=== PATIENT | male | born 1970 | race Caucasian/White ===

== ENCOUNTER 2024-09-16 11:26 | Emergency (ER) | payer BC ==
[~2024-09-16] VITALS: Ht 170.2 cm; Wt 82.0 kg
[2024-09-16 11:56] LABS: BASOPHILS # (AUTO) 0.1 X10'3 (0-0.2); BASOPHILS % (AUTO) 1.2 % (0-1); EOSINOPHILS % (AUTO) 0.5 % (0-6); HEMATOCRIT 31.8 % (42.0-52.0); HEMOGLOBIN 10.7 g/dl (14.0-17.9); LYMPHOCYTES # (AUTO) 1.2 X10'3 (1.1-4.8); LYMPHOCYTES % (AUTO) 23.3 % (21-51); MEAN CORPUSCULAR HEMOGLOBIN 33.3 PG (27.0-31.0); MEAN CORPUSCULAR HGB CONC 33.8 g/dL (33.0-36.5); MEAN CORPUSCULAR VOLUME 98.6 FL (78-98); MEAN PLATELET VOLUME 9.3 FL (7.4-10.4); MONOCYTES # (AUTO) 0.1 X10'3 (0-0.9); MONOCYTES % (AUTO) 2.9 % (2-12); NEUTROPHILS # (AUTO) 3.8 X10'3 (1.8-7.7); NEUTROPHILS % (AUTO) 72.1 % (42-75); PLATELET COUNT 178 X10'3 (140-440); RED BLOOD COUNT 3.23 X10'6 (4.70-6.10); RED CELL DISTRIBUTION WIDTH 13.5 % (11.5-14.5); WHITE BLOOD COUNT 5.2 X10'3 (4.5-11.0)
[2024-09-16] MEDS ORDERED: proparacaine 0.5% ophthalmic drops 15ml LEFTEYE ONE (12:00)
[2024-09-16 12:15] LABS: ALANINE AMINOTRANSFERASE 537 U/L (12-78); ALBUMIN 3.5 G/DL (3.4-5.0); ALBUMIN/GLOBULIN RATIO 1.1 (1.1-1.5); ALKALINE PHOSPHATASE 208 IU/L (46-116); ANION GAP 19 (8-16); BILIRUBIN,TOTAL 0.7 MG/DL (0.1-1.0); BLOOD UREA NITROGEN 33 MG/DL (7-18); BUN/CREATININE RATIO 14.3 (10.0-20.0); CALCIUM 8.4 MG/DL (8.5-10.1); CHLORIDE 103 MMOL/L (99-107); CREATININE 2.31 MG/DL (0.60-1.10); GLUCOSE 169 MG/DL (70-104); POTASSIUM 3.9 MMOL/L (3.5-5.1); SODIUM 138 MMOL/L (135-145); TOTAL PROTEIN 6.6 G/DL (6.4-8.2); eCRCL 34 ML/MIN; eGFR 30 ML/MIN
[2024-09-16 12:30] LABS: PRO BRAIN NATRIURETIC PEPTIDE 44 PG/ML (0-125)
[2024-09-16] MEDS: normal saline 1000ml 1,000 ML IV ONE ×2 (12:36→15:52)
[2024-09-16] MEDS: thiamine 100mg/ml 2ml inj. IM ONE (12:37)
[2024-09-16 12:39] LABS: ASPARTATE AMINO TRANSFERASE 2870 U/L (10-37)
[2024-09-16 12:53] LABS: ETHANOL 225 MG/DL (<10)
[2024-09-16] MEDS ORDERED: normal saline 1000ml 1,000 ML IV SCH (15:25)
[2024-09-16 18:52] VITALS: TEMP 97.5
[2024-09-16] MEDS: ondansetron/PF 4mg/2ml inj IV ONE (18:52)
[2024-09-16 19:12] VITALS: BP 110/60; PULSE 85; RESP 16; O2SAT 99
== END 2024-09-16 19:26 | disposition home or self-care (01) ==
LOC: ER 11:26
DX: E86.0 Dehydration (principal); I95.9 Hypotension, unspecified; R53.1 Weakness; R42 Dizziness and giddiness
CPT/HCPCS: 36415; 71045; 80053; 80320; 82948; 83880; 84484; 85025; 93005; 96361; 96372; 96374; 99285; J2405; J3411; J7030

== ENCOUNTER 2024-10-02 10:41 | Emergency (ER) | payer BC ==
[~2024-10-02] VITALS: Ht 172.7 cm; Wt 74.3 kg
[2024-10-02 10:43] VITALS: BP 135/82; PULSE 119; RESP 16; O2SAT 98
[2024-10-02 11:51] LABS: ALBUMIN 3.6 G/DL (3.4-5.0); ANION GAP 16 (8-16); BLOOD UREA NITROGEN 8 MG/DL (7-18); BUN/CREATININE RATIO 4.5 (10.0-20.0); CALCIUM 8.9 MG/DL (8.5-10.1); CHLORIDE 104 MMOL/L (99-107); CREATININE 1.79 MG/DL (0.60-1.10); GLUCOSE 209 MG/DL (70-104); POTASSIUM 3.7 MMOL/L (3.5-5.1); SODIUM 138 MMOL/L (135-145); TOTAL CARBON DIOXIDE 18.4 MMOL/L (24-32); eCRCL 45 ML/MIN; eGFR 40 ML/MIN
[2024-10-02 11:55] LABS: BASOPHILS # (AUTO) 0.1 X10'3 (0-0.2); LYMPHOCYTES # (AUTO) 1.4 X10'3 (1.1-4.8); MEAN CORPUSCULAR VOLUME 100.7 FL (78-98); MONOCYTES # (AUTO) 0.4 X10'3 (0-0.9); WHITE BLOOD COUNT 3.4 X10'3 (4.5-11.0)
[2024-10-02 11:57] LABS: BASOPHILS % (AUTO) 2.3 % (0-1); EOSINOPHILS # (AUTO) 0.1 X10'3 (0-0.9); EOSINOPHILS % (AUTO) 1.5 % (0-6); HEMATOCRIT 34.3 % (42.0-52.0); HEMOGLOBIN 11.7 g/dl (14.0-17.9); MEAN CORPUSCULAR HEMOGLOBIN 34.5 PG (27.0-31.0); MEAN CORPUSCULAR HGB CONC 34.2 g/dL (33.0-36.5); MONOCYTES % (AUTO) 12.1 % (2-12); NEUTROPHILS # (AUTO) 1.4 X10'3 (1.8-7.7); NEUTROPHILS % (AUTO) 43.1 % (42-75); PLATELET COUNT 214 X10'3 (140-440); RED BLOOD COUNT 3.41 X10'6 (4.70-6.10); RED CELL DISTRIBUTION WIDTH 14.8 % (11.5-14.5)
[2024-10-02 12:09] VITALS: TEMP 98.5
[2024-10-02] MEDS ORDERED: GABA300C PO (15:16)
== END 2024-10-02 12:11 | disposition home or self-care (01) ==
LOC: ER 10:42
DX: F41.9 Anxiety disorder, unspecified (principal); F10.10 Alcohol abuse, uncomplicated; F13.20 Sedative, hypnotic or anxiolytic dependence, uncomplicated; I10 Essential (primary) hypertension; E11.9 Type 2 diabetes mellitus without complications; Z79.899 Other long term (current) drug therapy
CPT/HCPCS: 80048; 85025; 99283

== ENCOUNTER 2024-11-24 10:26 | Inpatient (IN) | payer BC, MEDICAID ==
[~2024-11-24] VITALS: Ht 172.7 cm; Wt 82.0 kg
[~2024-11-24 10:26] MED LIST: GABA300C PO
[2024-11-24 12:06] LABS: BILIRUBIN,URINE NEGATIVE (Neg); CLARITY,URINE CLEAR (Clear); COLOR,URINE YELLOW (Yellow); GLUCOSE, URINE NEGATIVE (Neg); KETONES,URINE NEGATIVE (Neg); LEUKOCYTE ESTERASE ,URINE NEGATIVE (Neg); NITRITES, URINE NEGATIVE (Neg); OCCULT BLOOD,URINE NEGATIVE (Neg); PH,URINE 6.5 (4.8-8.0); PROTEIN,URINE TRACE mg/dl (Neg); UROBILINOGEN,URINE 0.2 E.U/dL (0.2-1.0)
[2024-11-24 12:08] LABS: UA COLLECTION TYPE VOIDED
[2024-11-24 12:12] LABS: BACTERIA,URINE NONE SEEN /HPF (Neg); MUCUS STRANDS NONE SEEN /LPF (Neg); RBC,URINE 0-2 /HPF (0-2); SQUAMOUS EPITHELIAL CELL,UR NONE SEEN /LPF (FEW); WBC,URINE 0-4 /HPF (0-4)
[2024-11-24 12:18] LABS: URINE AMPHETAMINE SCREEN NEGATIVE (Neg); URINE BARBITUATE SCREEN NEGATIVE (Neg); URINE BENZODIAZEPINES SCREEN POSITIVE (Neg); URINE CANNABINOID SCREEN NEGATIVE (Neg); URINE COCAINE SCREEN NEGATIVE (Neg); URINE METHADONE SCREEN NEGATIVE (Neg); URINE OPIATE SCREEN NEGATIVE (Neg); URINE PHENCYCLIDINE SCREEN NEGATIVE (Neg)
[2024-11-24 12:20] LABS: BASOPHILS # (AUTO) 0.1 X10'3 (0-0.2); BASOPHILS % (AUTO) 1.5 % (0-1); EOSINOPHILS # (AUTO) 0.1 X10'3 (0-0.9); EOSINOPHILS % (AUTO) 2.3 % (0-6); HEMATOCRIT 36.1 % (42.0-52.0); HEMOGLOBIN 12.3 g/dl (14.0-17.9); LYMPHOCYTES # (AUTO) 1.6 X10'3 (1.1-4.8); LYMPHOCYTES % (AUTO) 35.9 % (21-51); MEAN CORPUSCULAR HEMOGLOBIN 34.4 PG (27.0-31.0); MEAN CORPUSCULAR HGB CONC 34.2 g/dL (33.0-36.5); MEAN CORPUSCULAR VOLUME 100.4 FL (78-98); MEAN PLATELET VOLUME 9.8 FL (7.4-10.4); MONOCYTES # (AUTO) 0.3 X10'3 (0-0.9); MONOCYTES % (AUTO) 7.2 % (2-12); NEUTROPHILS # (AUTO) 2.3 X10'3 (1.8-7.7); NEUTROPHILS % (AUTO) 53.1 % (42-75); PLATELET COUNT 166 X10'3 (140-440); RED BLOOD COUNT 3.59 X10'6 (4.70-6.10); RED CELL DISTRIBUTION WIDTH 14.6 % (11.5-14.5); WHITE BLOOD COUNT 4.4 X10'3 (4.5-11.0)
[2024-11-24] MEDS: ondansetron/PF 4mg/2ml inj IV ONE (12:29)
[2024-11-24 12:45] LABS: ALBUMIN 3.8 G/DL (3.4-5.0); ANION GAP 16 (8-16); BLOOD UREA NITROGEN 20 MG/DL (7-18); BUN/CREATININE RATIO 11.6 (10.0-20.0); CALCIUM 8.8 MG/DL (8.5-10.1); CHLORIDE 102 MMOL/L (99-107); CREATININE 1.72 MG/DL (0.60-1.10); ETHANOL 127 MG/DL (<10); GLUCOSE 170 MG/DL (70-104); MAGNESIUM 1.6 MG/DL (1.5-2.4); POTASSIUM 3.4 MMOL/L (3.5-5.1); SODIUM 133 MMOL/L (135-145); eCRCL 46 ML/MIN; eGFR 41 ML/MIN
[2024-11-24 12:50] LABS: TOTAL CARBON DIOXIDE 14.9 MMOL/L (24-32)
[2024-11-24 13:10] LABS: ALANINE AMINOTRANSFERASE 290 U/L (12-78); ALBUMIN/GLOBULIN RATIO 1.1 (1.1-1.5); ALKALINE PHOSPHATASE 169 IU/L (46-116); ASPARTATE AMINO TRANSFERASE 522 U/L (10-37); BILIRUBIN,DIRECT 0.2 MG/DL (0-0.3); BILIRUBIN,TOTAL 0.6 MG/DL (0.1-1.0); TOTAL PROTEIN 7.2 G/DL (6.4-8.2)
[2024-11-24] MEDS: LORazepam 2 mg/ml vial IV ONE (13:17)
[2024-11-24] MEDS: normal saline 1000ml 1,000 ML IV ONE (13:17)
[2024-11-24] MEDS: normal saline 1000ML IV soln IVB ONE (13:17)
[2024-11-24 13:33] LABS: LIPASE 28 U/L (16-77)
[2024-11-24] MEDS: potassium CL 10mEq/100ml bag 100 ML IV ONE (13:53)
[2024-11-24] MEDS ORDERED: pantoprazole 40mg IV 80 MG in normal saline 100ml IV soln 100 ML IV ONE (14:25)
[2024-11-24] MEDS ORDERED: potassium Cl 40MEQ/1/2NS 520ml 520 ML IV PRN (14:35)
[2024-11-24] MEDS ORDERED: acetaminophen 325mg tablet PO PRN (14:35)
[2024-11-24] MEDS ORDERED: magnesium Cl slow-release 64mg tablet PO PRN (14:35)
[2024-11-24] MEDS ORDERED: metoclopramide 5 mg/ml inj IV PRN (14:35)
[2024-11-24] MEDS: pantoprazole 40 MG vial IV ONE (14:43)
[2024-11-24] MEDS: magnesium sulf-water 2g/50mL 50 ML IV ONE (14:44)
[2024-11-24] MEDS ORDERED: haloperidol lactate 5mg/ml inj IM PRN (15:25)
[2024-11-24] MEDS ORDERED: cloNIDine 0.1 mg tablet PO PRN (15:25)
[2024-11-24] MEDS ORDERED: DEXTROSE 15 GM of carb/4 tabs (each vial/BOTTLE has 4 tablets) PO PRN ×2 (15:30)
[2024-11-24] MEDS ORDERED: glucagon, human recombinant 1mg kit SUBCUT PRN (15:30)
[2024-11-24 15:36] LABS: OCCULT BLOOD STOOL POSITIVE (Neg)
[2024-11-24] MEDS: thiamine 100mg/ml 2ml inj. IV ONE (15:45)
[2024-11-24] MEDS: normal saline 1000ml 1,000 ML IV SCH (15:45)
[2024-11-24] MEDS ORDERED: PROP20TA6 PO (16:28)
[2024-11-24] MEDS ORDERED: EZET10TA48 PO (16:28)
[2024-11-24] MEDS ORDERED: ALPR1TAB7 PO (16:28)
[2024-11-24] MEDS ORDERED: GEMF600T89 PO (16:28)
[2024-11-24] MEDS ORDERED: ATOR-2 PO (16:28)
[2024-11-24 17:23] LABS: CHOL/HDL RATIO 2.5 (0.00-4.99); CHOLESTEROL 146 MG/DL (0-200); HDL CHOLESTEROL 58 MG/DL (35-60); LDL CHOLESTEROL 32 MG/DL (50-100); TRIGLYCERIDES 507 MG/DL (20-135)
[2024-11-24] MEDS: INSULIN LISPRO 100 UNIT/ML INSULN.PEN MULTI-DOSE SQ SCH (17:25)
[2024-11-24 17:30] LABS: HEMOGLOBIN A1C 7.2 % (4.5-6.2)
[2024-11-24] MEDS: K and/or MAG REPLACEMENT MC SCH (19:25)
[2024-11-24] MEDS: LORazepam 2 mg/ml vial IV PRN (19:44)
[2024-11-24] MEDS: pantoprazole 40 MG vial IV SCH (19:51)
[2024-11-24 21:00] VITALS: BP 126/66; RESP 20; RESP 22; TEMP 97.6; O2SAT 99
[2024-11-24] MEDS: insulin glargine (Lantus) pen - multi-dose SQ SCH (21:00)
[2024-11-24 22:00] VITALS: BP 122/66; PULSE 119; RESP 18; TEMP 98.4; O2SAT 100
[2024-11-25] VITALS (15 sets, daily range): BP systolic 90–133; BP diastolic 40–66; PULSE 108–140; RESP 16–32; TEMP 97–99.8; O2SAT 98–100
[2024-11-25 05:25] LABS: BASOPHILS # (AUTO) 0.1 X10'3 (0-0.2); BASOPHILS % (AUTO) 0.8 % (0-1); EOSINOPHILS % (AUTO) 0.2 % (0-6); HEMATOCRIT 30.8 % (42.0-52.0); HEMOGLOBIN 10.2 g/dl (14.0-17.9); LYMPHOCYTES # (AUTO) 1.4 X10'3 (1.1-4.8); LYMPHOCYTES % (AUTO) 18.2 % (21-51); MEAN CORPUSCULAR HEMOGLOBIN 34.3 PG (27.0-31.0); MEAN CORPUSCULAR HGB CONC 33.2 g/dL (33.0-36.5); MEAN CORPUSCULAR VOLUME 103.4 FL (78-98); MEAN PLATELET VOLUME 10.1 FL (7.4-10.4); MONOCYTES # (AUTO) 0.4 X10'3 (0-0.9); MONOCYTES % (AUTO) 5.8 % (2-12); NEUTROPHILS # (AUTO) 5.7 X10'3 (1.8-7.7); PLATELET COUNT 132 X10'3 (140-440); RED BLOOD COUNT 2.98 X10'6 (4.70-6.10); RED CELL DISTRIBUTION WIDTH 14.5 % (11.5-14.5); WHITE BLOOD COUNT 7.6 X10'3 (4.5-11.0)
[2024-11-25 05:49] LABS: ALANINE AMINOTRANSFERASE 203 U/L (12-78); ALBUMIN 3.3 G/DL (3.4-5.0); ALKALINE PHOSPHATASE 135 IU/L (46-116); ANION GAP 24 (8-16); ASPARTATE AMINO TRANSFERASE 276 U/L (10-37); BILIRUBIN,TOTAL 0.8 MG/DL (0.1-1.0); BLOOD UREA NITROGEN 18 MG/DL (7-18); BUN/CREATININE RATIO 10.3 (10.0-20.0); CALCIUM 7.7 MG/DL (8.5-10.1); CHLORIDE 102 MMOL/L (99-107); CREATININE 1.75 MG/DL (0.60-1.10); GLUCOSE 322 MG/DL (70-104); MAGNESIUM 1.6 MG/DL (1.5-2.4); PHOSPHORUS 2.8 MG/DL (2.3-4.5); POTASSIUM 4.2 MMOL/L (3.5-5.1); SODIUM 133 MMOL/L (135-145); TOTAL PROTEIN 6.6 G/DL (6.4-8.2); eCRCL 46 ML/MIN; eGFR 41 ML/MIN
[2024-11-25 06:19] LABS: TOTAL CARBON DIOXIDE 7.1 MMOL/L (24-32)
[2024-11-25] MEDS ORDERED: sodium bicarbonate (8.4%) inj. 100 MEQ in dextrose 5%-water 1,000 ML IV SCH (06:30)
[2024-11-25] MEDS ORDERED: dextrose 50%-water 50ml dispensing syringe IV PRN ×2 (07:35→22:25)
[2024-11-25] MEDS ORDERED: potassium Cl 40MEQ/270ML bag 270 ML IV PRN (07:35)
[2024-11-25] MEDS ORDERED: ringers solution, lacted 1,000 ML IV SCH (07:40)
[2024-11-25 07:44] LABS: ABG BASE EXCESS -20.2 mmol/L (-2.0-3.0); ABG HCO3 5.4 mmol/L (21.0-28.0); ABG OXYGEN SATURATION 98.2 % (94.0-98.0); ABG PCO2 (T) 13.7 mmHg (35.0-48.0); ABG PH (T) 7.213 (7.350-7.450); ABG PO2 (T) 111.9 mmHg (83.0-108.0); ALLEN'S TEST POSITIVE; FCOHb 0.3 % (0.5-1.5); FHHb 1.8 % (0.0-5.0); FMetHb 0.1 % (0.0-1.5); FO2Hb 97.8 % (94.0-98.0); MODE ROOM AIR; PATIENT TEMPERATURE 37.1; TOTAL HEMOGLOBIN 10.3 G/dl (13.5-17.5)
[2024-11-25] MEDS: ringers solution, lacted 1,000 ML IV ONE (08:00)
[2024-11-25] MEDS: ondansetron/PF 4mg/2ml inj IV PRN (08:03)
[2024-11-25] MEDS: multivitamins, therapeutics tablet PO SCH (08:54)
[2024-11-25] MEDS: thiamine 100mg tablet PO SCH (08:54)
[2024-11-25] MEDS: ringers solution, lacted 1,000 ML IV SCH (10:31)
[2024-11-25] MEDS: Insulin Reg/NS 100units/100mL 100 ML IV SCH (10:38)
[2024-11-25] MEDS: potassium Cl 40MEQ/1/2NS 520ml 520 ML IV PRN (10:39)
[2024-11-25] MEDS: WATER FOR INJ IV ONE (10:50)
[2024-11-25] MEDS: [UNRECOGNIZED DRUG - OTHER] IV ONE (10:50)
[2024-11-25] MEDS: SODIUM BICARBONATE IV ONE (10:50)
[2024-11-25] MEDS: POTASSIUM CL IV ONE (10:50)
[2024-11-25] MEDS: magnesium sulf-water 2g/50mL 50 ML IV PRN (11:05)
[2024-11-25 12:10] LABS: ALBUMIN 3.3 G/DL (3.4-5.0); ANION GAP 25 (8-16); BLOOD UREA NITROGEN 20 MG/DL (7-18); BUN/CREATININE RATIO 8.8 (10.0-20.0); CALCIUM 7.7 MG/DL (8.5-10.1); CHLORIDE 105 MMOL/L (99-107); CREATININE 2.28 MG/DL (0.60-1.10); GLUCOSE 271 MG/DL (70-104); POTASSIUM 3.9 MMOL/L (3.5-5.1); SODIUM 137 MMOL/L (135-145); eCRCL 35 ML/MIN; eGFR 30 ML/MIN
[2024-11-25 12:12] LABS: TOTAL CARBON DIOXIDE 7.2 MMOL/L (24-32)
[2024-11-25] MEDS ORDERED: ALBU90AE INH (12:39)
[2024-11-25] MEDS ORDERED: INSU100C4 SQ (12:39)
[2024-11-25] MEDS ORDERED: AMLO5TAB16 PO (12:39)
[2024-11-25] MEDS ORDERED: ALB0.5UD IH (12:39)
[2024-11-25] MEDS ORDERED: CHOL50004 PO (12:39)
[2024-11-25] MEDS: insulin regular, human U-100 10ml vial - multi-dose IV STA (12:57)
[2024-11-25] MEDS: dextrose 5%-1/2 normal saline 1,000 ML IV PRN (12:58)
[2024-11-25] MEDS: albuterol 2.5 MG/3 ML nebule ONE (13:54)
[2024-11-25] MEDS: acetaminophen 325mg tablet PO PRN (14:21)
[2024-11-25] MEDS ORDERED: albuterol 2.5 MG/3 ML nebule NEB SCH (16:00)
[2024-11-25] MEDS: albuterol 2.5 MG/3 ML nebule NEB SCH (16:00)
[2024-11-25 16:09] LABS: ANION GAP 17 (8-16); BLOOD UREA NITROGEN 18 MG/DL (7-18); BUN/CREATININE RATIO 7.7 (10.0-20.0); CHLORIDE 105 MMOL/L (99-107); CREATININE 2.34 MG/DL (0.60-1.10); GLUCOSE 98 MG/DL (70-104); POTASSIUM 3.5 MMOL/L (3.5-5.1); SODIUM 134 MMOL/L (135-145); eCRCL 34 ML/MIN; eGFR 29 ML/MIN
[2024-11-25 16:22] LABS: CALCIUM 7.9 MG/DL (8.5-10.1)
[2024-11-25 16:26] LABS: TOTAL CARBON DIOXIDE 11.8 MMOL/L (24-32)
[2024-11-25] MEDS: Dextrose 10%-water IV solution 1,000 ML IV SCH ×2 (19:27→21:45)
[2024-11-25] MEDS: sodium phosphate inj. 30 MMOL in dextrose 5%-water 250 ML IV ONE (19:35)
[2024-11-25] MEDS ORDERED: Dextrose 10%-water IV solution 1,000 ML IV SCH (20:15)
[2024-11-25 20:30] LABS: ALBUMIN 3.1 G/DL (3.4-5.0); ANION GAP 13 (8-16); BLOOD UREA NITROGEN 16 MG/DL (7-18); BUN/CREATININE RATIO 7.8 (10.0-20.0); CALCIUM 7.6 MG/DL (8.5-10.1); CHLORIDE 106 MMOL/L (99-107); CREATININE 2.05 MG/DL (0.60-1.10); GLUCOSE 67 MG/DL (70-104); MAGNESIUM 2.1 MG/DL (1.5-2.4); POTASSIUM 3.5 MMOL/L (3.5-5.1); SODIUM 134 MMOL/L (135-145); TOTAL CARBON DIOXIDE 15.1 MMOL/L (24-32); eCRCL 39 ML/MIN; eGFR 34 ML/MIN
[2024-11-25 20:41] LABS: PHOSPHORUS 0.9 MG/DL (2.3-4.5)
[2024-11-25] MEDS: pantoprazole 40mg Tablet.DR PO SCH (21:39)
[2024-11-25] MEDS: HYDROcodone/acetaminophen 5mg/325mg tablet PO PRN (21:40)
[2024-11-25] MEDS ORDERED: DEXTROSE 15 GM of carb/4 tabs (each vial/BOTTLE has 4 tablets) PO PRN ×2 (22:25)
[2024-11-25] MEDS ORDERED: glucagon, human recombinant 1mg kit SUBCUT PRN (22:25)
[2024-11-25 23:03] LABS: TOTAL PROTEIN,URINE RANDOM 22.3 MG/DL
[2024-11-25 23:22] LABS: OSMOLALITY UA 304.5 MOSM/K (50-1400)
[2024-11-25] MEDS: chlordiazePOXIDE 25mg capsule PO SCH (23:46)
[2024-11-26] VITALS (19 sets, daily range): BP systolic 99–146; BP diastolic 53–93; PULSE 109–126; RESP 16–26; TEMP 97.1–99.5; O2SAT 98–100
[2024-11-26] MEDS: insulin glargine (Lantus) pen - multi-dose SQ SCH (00:15)
[2024-11-26] MEDS: albuterol 2.5 MG/3 ML nebule NEB PRN (02:03)
[2024-11-26] MEDS: INSULIN LISPRO 100 UNIT/ML INSULN.PEN MULTI-DOSE SQ ONE ×2 (02:04→05:17)
[2024-11-26 05:48] LABS: BASOPHILS % (AUTO) 0.1 % (0-1); EOSINOPHILS % (AUTO) 0 % (0-6); HEMATOCRIT 26.8 % (42.0-52.0); HEMOGLOBIN 8.9 g/dl (14.0-17.9); LYMPHOCYTES # (AUTO) 1.5 X10'3 (1.1-4.8); LYMPHOCYTES % (AUTO) 15.9 % (21-51); MEAN CORPUSCULAR HEMOGLOBIN 34.4 PG (27.0-31.0); MEAN CORPUSCULAR HGB CONC 33.2 g/dL (33.0-36.5); MEAN CORPUSCULAR VOLUME 103.6 FL (78-98); MEAN PLATELET VOLUME 9.9 FL (7.4-10.4); MONOCYTES # (AUTO) 0.8 X10'3 (0-0.9); MONOCYTES % (AUTO) 8.8 % (2-12); NEUTROPHILS # (AUTO) 6.9 X10'3 (1.8-7.7); NEUTROPHILS % (AUTO) 75.2 % (42-75); PLATELET COUNT 107 X10'3 (140-440); RED BLOOD COUNT 2.59 X10'6 (4.70-6.10); RED CELL DISTRIBUTION WIDTH 14.5 % (11.5-14.5); WHITE BLOOD COUNT 9.1 X10'3 (4.5-11.0)
[2024-11-26 06:05] LABS: ALANINE AMINOTRANSFERASE 144 U/L (12-78); ALBUMIN 3.1 G/DL (3.4-5.0); ALKALINE PHOSPHATASE 105 IU/L (46-116); ANION GAP 20 (8-16); ASPARTATE AMINO TRANSFERASE 156 U/L (10-37); BILIRUBIN,TOTAL 0.6 MG/DL (0.1-1.0); BLOOD UREA NITROGEN 15 MG/DL (7-18); BUN/CREATININE RATIO 7.8 (10.0-20.0); CALCIUM 7.8 MG/DL (8.5-10.1); CHLORIDE 101 MMOL/L (99-107); CREATININE 1.92 MG/DL (0.60-1.10); MAGNESIUM 1.5 MG/DL (1.5-2.4); POTASSIUM 3.4 MMOL/L (3.5-5.1); SODIUM 130 MMOL/L (135-145); TOTAL PROTEIN 6.2 G/DL (6.4-8.2); eCRCL 42 ML/MIN; eGFR 36 ML/MIN
[2024-11-26 06:18] LABS: GLUCOSE 415 MG/DL (70-104); TOTAL CARBON DIOXIDE 9.2 MMOL/L (24-32)
[2024-11-26] MEDS ORDERED: dextrose 50%-water 50ml dispensing syringe IV PRN (06:30)
[2024-11-26] MEDS: ringers solution, lacted 1,000 ML IV SCH ×2 (06:35→07:42)
[2024-11-26] MEDS: dextrose 5%-1/2 normal saline 1,000 ML IV SCH ×2 (06:35→21:23)
[2024-11-26] MEDS: INSULIN LISPRO 100 UNIT/ML INSULN.PEN MULTI-DOSE SQ SCH ×2 (07:00→20:33)
[2024-11-26] MEDS: Insulin Reg/NS 100units/100mL 100 ML IV SCH (07:49)
[2024-11-26] MEDS: dextrose 50%-water 50ml dispensing syringe IV PRN ×3 (10:44→18:24)
[2024-11-26 10:50] LABS: ALANINE AMINOTRANSFERASE 142 U/L (12-78); ALBUMIN 3.2 G/DL (3.4-5.0); ALKALINE PHOSPHATASE 102 IU/L (46-116); ANION GAP 17 (8-16); ASPARTATE AMINO TRANSFERASE 146 U/L (10-37); BILIRUBIN,TOTAL 0.5 MG/DL (0.1-1.0); BLOOD UREA NITROGEN 12 MG/DL (7-18); BUN/CREATININE RATIO 6.8 (10.0-20.0); CALCIUM 8.2 MG/DL (8.5-10.1); CHLORIDE 107 MMOL/L (99-107); CREATININE 1.77 MG/DL (0.60-1.10); GLUCOSE 94 MG/DL (70-104); MAGNESIUM 1.3 MG/DL (1.5-2.4); PHOSPHORUS 1.8 MG/DL (2.3-4.5); SODIUM 137 MMOL/L (135-145); TOTAL PROTEIN 6.3 G/DL (6.4-8.2); eCRCL 45 ML/MIN; eGFR 40 ML/MIN
[2024-11-26 10:57] LABS: TOTAL CARBON DIOXIDE 13.1 MMOL/L (24-32)
[2024-11-26] MEDS ORDERED: sodium chloride inj. 154 MEQ in Dextrose 10%-water IV solution 961.5 ML IV SCH (11:05)
[2024-11-26] MEDS: potassium Cl 20 mEq SR tablet PO PRN ×2 (11:16→21:39)
[2024-11-26] MEDS: Dextrose 10%-water IV solution 1,000 ML IV SCH ×2 (11:27→17:14)
[2024-11-26 14:32] LABS: ALANINE AMINOTRANSFERASE 138 U/L (12-78); ALBUMIN 3.1 G/DL (3.4-5.0); ALKALINE PHOSPHATASE 97 IU/L (46-116); ANION GAP 15 (8-16); ASPARTATE AMINO TRANSFERASE 137 U/L (10-37); BILIRUBIN,TOTAL 0.5 MG/DL (0.1-1.0); BLOOD UREA NITROGEN 10 MG/DL (7-18); BUN/CREATININE RATIO 6.4 (10.0-20.0); CHLORIDE 108 MMOL/L (99-107); CREATININE 1.56 MG/DL (0.60-1.10); GLUCOSE 97 MG/DL (70-104); MAGNESIUM 1.3 MG/DL (1.5-2.4); PHOSPHORUS 1.5 MG/DL (2.3-4.5); POTASSIUM 3.2 MMOL/L (3.5-5.1); SODIUM 138 MMOL/L (135-145); TOTAL CARBON DIOXIDE 15.4 MMOL/L (24-32); TOTAL PROTEIN 6.3 G/DL (6.4-8.2); eCRCL 51 ML/MIN; eGFR 46 ML/MIN
[2024-11-26 14:53] LABS: ALBUMIN 2.8 G/DL (3.4-5.0); ANION GAP 13 (8-16); BLOOD UREA NITROGEN 10 MG/DL (7-18); BUN/CREATININE RATIO 7.3 (10.0-20.0); CALCIUM 7.8 MG/DL (8.5-10.1); CHLORIDE 110 MMOL/L (99-107); CREATININE 1.37 MG/DL (0.60-1.10); GLUCOSE 82 MG/DL (70-104); SODIUM 138 MMOL/L (135-145); eCRCL 58 ML/MIN; eGFR 54 ML/MIN
[2024-11-26] MEDS: magnesium sulf-water 2g/50mL 50 ML IV PRN (15:41)
[2024-11-26] MEDS: potassium phosphate inj 30 MMOL in normal saline 250ml IV soln 250 ML IV ONE (17:06)
[2024-11-26] MEDS: sodium phosphate inj. 30 MMOL in dextrose 5%-water 250 ML IV ONE (17:13)
[2024-11-26 17:42] LABS: ALANINE AMINOTRANSFERASE 120 U/L (12-78); ALBUMIN 2.8 G/DL (3.4-5.0); ALBUMIN/GLOBULIN RATIO 0.9 (1.1-1.5); ALKALINE PHOSPHATASE 90 IU/L (46-116); ANION GAP 13 (8-16); ASPARTATE AMINO TRANSFERASE 130 U/L (10-37); BILIRUBIN,TOTAL 0.6 MG/DL (0.1-1.0); BLOOD UREA NITROGEN 9 MG/DL (7-18); BUN/CREATININE RATIO 6.9 (10.0-20.0); CALCIUM 7.4 MG/DL (8.5-10.1); CHLORIDE 107 MMOL/L (99-107); CREATININE 1.31 MG/DL (0.60-1.10); GLUCOSE 149 MG/DL (70-104); MAGNESIUM 2.2 MG/DL (1.5-2.4); PHOSPHORUS 1.6 MG/DL (2.3-4.5); POTASSIUM 3.3 MMOL/L (3.5-5.1); SODIUM 135 MMOL/L (135-145); TOTAL PROTEIN 5.9 G/DL (6.4-8.2); eCRCL 61 ML/MIN; eGFR 57 ML/MIN
[2024-11-26 21:29] LABS: ALANINE AMINOTRANSFERASE 126 U/L (12-78); ALKALINE PHOSPHATASE 95 IU/L (46-116); ANION GAP 14 (8-16); ASPARTATE AMINO TRANSFERASE 132 U/L (10-37); BILIRUBIN,TOTAL 0.7 MG/DL (0.1-1.0); BLOOD UREA NITROGEN 7 MG/DL (7-18); BUN/CREATININE RATIO 5.2 (10.0-20.0); CALCIUM 6.5 MG/DL (8.5-10.1); CHLORIDE 104 MMOL/L (99-107); CREATININE 1.34 MG/DL (0.60-1.10); GLUCOSE 201 MG/DL (70-104); MAGNESIUM 1.2 MG/DL (1.5-2.4); PHOSPHORUS 2.2 MG/DL (2.3-4.5); POTASSIUM 3.4 MMOL/L (3.5-5.1); SODIUM 133 MMOL/L (135-145); TOTAL CARBON DIOXIDE 15.2 MMOL/L (24-32); TOTAL PROTEIN 6.1 G/DL (6.4-8.2); eCRCL 60 ML/MIN; eGFR 55 ML/MIN
[2024-11-26] MEDS: magnesium sulf-water 4G/100mL 100 ML IV PRN (21:39)
[2024-11-27] VITALS (12 sets, daily range): BP systolic 102–136; BP diastolic 63–81; PULSE 108–135; RESP 16–26; TEMP 97.7–98.8; O2SAT 98–100
[2024-11-27] MEDS: tetrahydrozoline 0.05% 15ml ophthalmic drops EACHEYE SCH (00:40)
[2024-11-27 02:14] LABS: ALANINE AMINOTRANSFERASE 125 U/L (12-78); ALBUMIN 3.2 G/DL (3.4-5.0); ALBUMIN/GLOBULIN RATIO 1.1 (1.1-1.5); ALKALINE PHOSPHATASE 97 IU/L (46-116); ANION GAP 15 (8-16); ASPARTATE AMINO TRANSFERASE 129 U/L (10-37); BILIRUBIN,TOTAL 0.8 MG/DL (0.1-1.0); BLOOD UREA NITROGEN 6 MG/DL (7-18); BUN/CREATININE RATIO 5.2 (10.0-20.0); CALCIUM 8.2 MG/DL (8.5-10.1); CHLORIDE 107 MMOL/L (99-107); CREATININE 1.15 MG/DL (0.60-1.10); GLUCOSE 137 MG/DL (70-104); MAGNESIUM 2.6 MG/DL (1.5-2.4); PHOSPHORUS 2.2 MG/DL (2.3-4.5); POTASSIUM 3.4 MMOL/L (3.5-5.1); SODIUM 137 MMOL/L (135-145); TOTAL PROTEIN 6.2 G/DL (6.4-8.2); eCRCL 69 ML/MIN; eGFR 66 ML/MIN
[2024-11-27 02:21] LABS: TOTAL CARBON DIOXIDE 14.6 MMOL/L (24-32)
[2024-11-27] MEDS: diphenhydrAMINE 25 MG/10 ML UD oral solution PO ONE (03:05)
[2024-11-27 05:13] LABS: HBSAG SCREEN Negative (Negative); HEP B CORE AB, IGM Negative (Negative); HEP B CORE AB, TOT Negative (Negative); HEP B SURF AB Non Reactive (.)
[2024-11-27 06:09] LABS: BASOPHILS % (AUTO) 0.6 % (0-1); EOSINOPHILS % (AUTO) 0.2 % (0-6); HEMATOCRIT 25.9 % (42.0-52.0); HEMOGLOBIN 8.8 g/dl (14.0-17.9); LYMPHOCYTES # (AUTO) 1.5 X10'3 (1.1-4.8); LYMPHOCYTES % (AUTO) 18.3 % (21-51); MEAN CORPUSCULAR HEMOGLOBIN 34.5 PG (27.0-31.0); MEAN CORPUSCULAR VOLUME 101.5 FL (78-98); MONOCYTES # (AUTO) 0.5 X10'3 (0-0.9); MONOCYTES % (AUTO) 6.6 % (2-12); NEUTROPHILS # (AUTO) 6.1 X10'3 (1.8-7.7); NEUTROPHILS % (AUTO) 74.3 % (42-75); PLATELET COUNT 99 X10'3 (140-440); RED BLOOD COUNT 2.55 X10'6 (4.70-6.10); RED CELL DISTRIBUTION WIDTH 14.5 % (11.5-14.5); WHITE BLOOD COUNT 8.2 X10'3 (4.5-11.0)
[2024-11-27 06:36] LABS: ALANINE AMINOTRANSFERASE 126 U/L (12-78); ALBUMIN 3.1 G/DL (3.4-5.0); ALBUMIN/GLOBULIN RATIO 0.9 (1.1-1.5); ALKALINE PHOSPHATASE 98 IU/L (46-116); ANION GAP 14 (8-16); ASPARTATE AMINO TRANSFERASE 129 U/L (10-37); BILIRUBIN,TOTAL 0.7 MG/DL (0.1-1.0); BLOOD UREA NITROGEN 5 MG/DL (7-18); CHLORIDE 105 MMOL/L (99-107); CREATININE 1.25 MG/DL (0.60-1.10); GLUCOSE 126 MG/DL (70-104); MAGNESIUM 2.1 MG/DL (1.5-2.4); PHOSPHORUS 2.1 MG/DL (2.3-4.5); POTASSIUM 3.4 MMOL/L (3.5-5.1); SODIUM 134 MMOL/L (135-145); TOTAL CARBON DIOXIDE 15.4 MMOL/L (24-32); TOTAL PROTEIN 6.5 G/DL (6.4-8.2); eCRCL 64 ML/MIN; eGFR 60 ML/MIN
[2024-11-27 09:33] LABS: ALANINE AMINOTRANSFERASE 114 U/L (12-78); ALBUMIN 2.9 G/DL (3.4-5.0); ALKALINE PHOSPHATASE 91 IU/L (46-116); ANION GAP 13 (8-16); ASPARTATE AMINO TRANSFERASE 109 U/L (10-37); BILIRUBIN,TOTAL 0.7 MG/DL (0.1-1.0); BLOOD UREA NITROGEN 5 MG/DL (7-18); BUN/CREATININE RATIO 4.8 (10.0-20.0); CALCIUM 7.9 MG/DL (8.5-10.1); CHLORIDE 107 MMOL/L (99-107); CREATININE 1.05 MG/DL (0.60-1.10); GLUCOSE 217 MG/DL (70-104); MAGNESIUM 1.8 MG/DL (1.5-2.4); PHOSPHORUS 2.3 MG/DL (2.3-4.5); POTASSIUM 3.3 MMOL/L (3.5-5.1); SODIUM 134 MMOL/L (135-145); TOTAL PROTEIN 5.7 G/DL (6.4-8.2); eCRCL 76 ML/MIN; eGFR 73 ML/MIN
[2024-11-27 09:36] LABS: TOTAL CARBON DIOXIDE 14.3 MMOL/L (24-32)
[2024-11-27] MEDS: normal saline 1000ml 1,000 ML IV SCH (09:46)
[2024-11-27] MEDS: cetirizine 10mg tablet PO SCH (13:39)
[2024-11-27] MEDS: ketorolac tromethamine 0.5% ophthalmic drops EACHEYE PRN (13:40)
[2024-11-27] MEDS: polyvinyl alcohol eye drops 15ML BOTTLE EACHEYE PRN (13:40)
[2024-11-27] MEDS: insulin glargine (Lantus) pen - multi-dose SQ ONE (15:57)
[2024-11-27 16:43] LABS: ALANINE AMINOTRANSFERASE 110 U/L (12-78); ALKALINE PHOSPHATASE 100 IU/L (46-116); ANION GAP 9 (8-16); ASPARTATE AMINO TRANSFERASE 104 U/L (10-37); BILIRUBIN,TOTAL 0.9 MG/DL (0.1-1.0); BLOOD UREA NITROGEN 4 MG/DL (7-18); BUN/CREATININE RATIO 3.4 (10.0-20.0); CHLORIDE 108 MMOL/L (99-107); CREATININE 1.17 MG/DL (0.60-1.10); GLUCOSE 184 MG/DL (70-104); MAGNESIUM 1.6 MG/DL (1.5-2.4); PHOSPHORUS 1.8 MG/DL (2.3-4.5); POTASSIUM 3.8 MMOL/L (3.5-5.1); SODIUM 134 MMOL/L (135-145); TOTAL CARBON DIOXIDE 16.9 MMOL/L (24-32); TOTAL PROTEIN 6.1 G/DL (6.4-8.2); eCRCL 68 ML/MIN; eGFR 64 ML/MIN
[2024-11-27] MEDS: INSULIN LISPRO 100 UNIT/ML INSULN.PEN MULTI-DOSE SQ SCH (17:44)
[2024-11-27 21:54] LABS: ALANINE AMINOTRANSFERASE 104 U/L (12-78); ALBUMIN 2.9 G/DL (3.4-5.0); ALBUMIN/GLOBULIN RATIO 0.9 (1.1-1.5); ALKALINE PHOSPHATASE 106 IU/L (46-116); ANION GAP 10 (8-16); ASPARTATE AMINO TRANSFERASE 102 U/L (10-37); BILIRUBIN,TOTAL 0.8 MG/DL (0.1-1.0); BLOOD UREA NITROGEN 4 MG/DL (7-18); BUN/CREATININE RATIO 3.7 (10.0-20.0); CALCIUM 7.7 MG/DL (8.5-10.1); CHLORIDE 107 MMOL/L (99-107); CREATININE 1.07 MG/DL (0.60-1.10); GLUCOSE 148 MG/DL (70-104); MAGNESIUM 1.7 MG/DL (1.5-2.4); PHOSPHORUS 2.1 MG/DL (2.3-4.5); POTASSIUM 3.6 MMOL/L (3.5-5.1); SODIUM 134 MMOL/L (135-145); TOTAL CARBON DIOXIDE 17.1 MMOL/L (24-32); TOTAL PROTEIN 6.2 G/DL (6.4-8.2); eCRCL 75 ML/MIN; eGFR 71 ML/MIN
[2024-11-28 02:00] VITALS: BP 113/78; PULSE 104; RESP 24; TEMP 97.6; O2SAT 100
[2024-11-28 03:33] LABS: BASOPHILS % (AUTO) 0.5 % (0-1); EOSINOPHILS # (AUTO) 0.1 X10'3 (0-0.9); EOSINOPHILS % (AUTO) 1.4 % (0-6); HEMATOCRIT 24.4 % (42.0-52.0); HEMOGLOBIN 8.2 g/dl (14.0-17.9); LYMPHOCYTES # (AUTO) 1.3 X10'3 (1.1-4.8); LYMPHOCYTES % (AUTO) 22.3 % (21-51); MEAN CORPUSCULAR HEMOGLOBIN 34.2 PG (27.0-31.0); MEAN CORPUSCULAR HGB CONC 33.7 g/dL (33.0-36.5); MEAN CORPUSCULAR VOLUME 101.6 FL (78-98); MONOCYTES # (AUTO) 0.5 X10'3 (0-0.9); NEUTROPHILS % (AUTO) 67.8 % (42-75); PLATELET COUNT 95 X10'3 (140-440); RED CELL DISTRIBUTION WIDTH 14.1 % (11.5-14.5); WHITE BLOOD COUNT 5.9 X10'3 (4.5-11.0)
[2024-11-28 03:44] LABS: ALANINE AMINOTRANSFERASE 103 U/L (12-78); ALBUMIN/GLOBULIN RATIO 0.9 (1.1-1.5); ALKALINE PHOSPHATASE 105 IU/L (46-116); ANION GAP 13 (8-16); ASPARTATE AMINO TRANSFERASE 100 U/L (10-37); BILIRUBIN,TOTAL 0.7 MG/DL (0.1-1.0); BLOOD UREA NITROGEN 3 MG/DL (7-18); CALCIUM 7.8 MG/DL (8.5-10.1); CHLORIDE 108 MMOL/L (99-107); GLUCOSE 99 MG/DL (70-104); MAGNESIUM 1.6 MG/DL (1.5-2.4); PHOSPHORUS 2.8 MG/DL (2.3-4.5); POTASSIUM 3.5 MMOL/L (3.5-5.1); SODIUM 137 MMOL/L (135-145); TOTAL CARBON DIOXIDE 16.2 MMOL/L (24-32); TOTAL PROTEIN 6.4 G/DL (6.4-8.2); eCRCL 80 ML/MIN; eGFR 77 ML/MIN
[2024-11-28 08:00] VITALS: RESP 21; O2SAT 96
[2024-11-28 09:38] LABS: ALANINE AMINOTRANSFERASE 99 U/L (12-78); ALBUMIN/GLOBULIN RATIO 0.9 (1.1-1.5); ALKALINE PHOSPHATASE 100 IU/L (46-116); ANION GAP 10 (8-16); ASPARTATE AMINO TRANSFERASE 88 U/L (10-37); BILIRUBIN,TOTAL 0.7 MG/DL (0.1-1.0); BLOOD UREA NITROGEN 3 MG/DL (7-18); BUN/CREATININE RATIO 3.4 (10.0-20.0); CALCIUM 8.1 MG/DL (8.5-10.1); CHLORIDE 110 MMOL/L (99-107); CREATININE 0.88 MG/DL (0.60-1.10); GLUCOSE 145 MG/DL (70-104); MAGNESIUM 1.5 MG/DL (1.5-2.4); PHOSPHORUS 2.1 MG/DL (2.3-4.5); POTASSIUM 3.5 MMOL/L (3.5-5.1); SODIUM 137 MMOL/L (135-145); TOTAL CARBON DIOXIDE 16.7 MMOL/L (24-32); TOTAL PROTEIN 6.3 G/DL (6.4-8.2); eCRCL 91 ML/MIN; eGFR 90 ML/MIN
[2024-11-28] MEDS ORDERED: FOLI1TAB27 PO (10:38)
[2024-11-28] MEDS ORDERED: CETI10TA14 PO (10:38)
[2024-11-28] MEDS ORDERED: OFLO5DRO EACHEYE (10:38)
[2024-11-28 11:00] VITALS: BP 129/76; PULSE 93; RESP 21; TEMP 99.3; O2SAT 97
[2024-11-28] MEDS ORDERED: LANTUS SQ (12:20)
[2024-11-29] MEDS ORDERED: folic acid 1mg tablet PO SCH (08:00)
== END 2024-11-28 14:10 | disposition home or self-care (01) | DRG 420 ==
LOC: ER 10:27 → ED HOLD 14:36 → SUR 3N 20:50 → PCU 3S 11-25 09:44
PROVIDERS: ADMIT Internal Medicine; ATTEND Internal Medicine
PROC: 05HY33Z Insertion of Infusion Device into Upper Vein, Percutaneous Approach (ICD-10-PCS; principal; 2024-11-26)
PROC: B54MZZA Ultrasonography of Right Upper Extremity Veins, Guidance (ICD-10-PCS; 2024-11-26)
DX: E10.10 Type 1 diabetes mellitus with ketoacidosis without coma (principal); N17.0 Acute kidney failure with tubular necrosis; K27.4 Chronic or unspecified peptic ulcer, site unspecified, with hemorrhage; E10.22 Type 1 diabetes mellitus with diabetic chronic kidney disease; E86.0 Dehydration; Z20.822 Contact with and (suspected) exposure to COVID-19; F10.929 Alcohol use, unspecified with intoxication, unspecified; E87.6 Hypokalemia; E83.42 Hypomagnesemia; N18.30 Chronic kidney disease, stage 3 unspecified; I12.9 Hypertensive chronic kidney disease with stage 1 through stage 4 chronic kidney disease, or unspecified chronic kidney disease; E87.1 Hypo-osmolality and hyponatremia; E78.5 Hyperlipidemia, unspecified; K59.00 Constipation, unspecified; Z79.899 Other long term (current) drug therapy
CPT/HCPCS: 36410; 36415; 36600; 71045; 76937; 80048; 80053; 80061; 80076; 80305; 80320; 81001; 82272; 82570; 82803; 82948; 83036; 83605; 83690; 83735; 83935; 84100; 84145; 84156; 84300; 84484; 85018; 85025; 85651; 86704; 86705; 86706; 87040; 87081; 87340; 87811; 93005; 94640; 94760; 94799; 99285; C1751; G0378; J1815; J2060; J2405; J2470; J3411; J3475; J3480; J3490; J7030; J7040; J7050; J7060; J7120; Q0163